=== PATIENT | female | born 1985 | race Caucasian/White ===

== ENCOUNTER 2017-08-17 10:55 | Emergency (ER) | payer OTHER ==
[~2017-08-17] VITALS: Ht 190.5 cm; Wt 80.4 kg
[2017-08-17 11:06] VITALS: TEMP 36.5; Ht 190.5 cm; Wt 80.4 kg
[2017-08-17 11:30] VITALS: O2SAT 100
--- NOTE | 2017-08-17 12:10 | EMERGENCY ROOM VISIT NOTE ---
History Report prepared by Homer: Shanelle Bui Under the Supervision of: Dr. Alan Kim M.D. First contact with patient: 11:54 Chief Complaint: SYNCOPE Stated Complaint: PASSED OUT IN KITCHEN, CHIPPED TOOTH WHEN FALLING Nursing Triage Summary: Pt c/o having a cold since earlier this week. This morning she stood up and felt a little dizzy, walked to kitchen and fell onto the floor, chipped her tooth, pt's states that she was shaking, event lasted for less than 30 seconds. Pt denies chest pain, SOB, cough, fever, chills. Pt states that she has been trying to stay well hydrated. History of Present Illness The patient is a 31 year old female who presents to the Emergency Room with complaints of a syncope episode that occurred this morning. The patient states she was sitting on the couch this morning and when she stood up and felt "fuzzy ". She notes she put her hands on the sink to steady herself. Her states that he saw her fall. The patient reports that she did not know where she was for a little while and was shaking. She notes she ate one half of a cinnamon roll this morning. She states this has never happened before. The notes that she stands up and feels dizzy frequently. The patient has had a cold for the past week. She states she has been taking Sudafed for her congestion. She notes she has not taken it for the past couple of days. She reports she took Claritin D yesterday morning. The patient notes that she started feeling better yesterday morning with her congestion. She states she takes Synthroid daily. The patient is also on control. She notes she took her last pill last night. The patient denies any chest pain or shortness of breath. She denies any chance of . Last menstrual cycle ended 1 week ago. Source of History: patient Onset: this morning Position: other (global) Quality: other (syncope) Associated Symptoms: No chest pain, No SOB Review of Systems See HPI for pertinent positives & negatives. A total of 10 systems reviewed and were otherwise negative. Past Medical & Surgical No pertinent medical or surgical history. Family History Cancer Hypertension Social History Smoking Status: Never Smoker Smokeless Tobacco Use: No Alcohol Use: occasionally Marital Status: Housing Status: lives with significant other Current/Historical Medications Scheduled Control Pills ( Control Pills), 1 TAB PO DAILY Levothyroxine Sodium (Synthroid), 200 MCG PO DAILY Allergies Coded Allergies: No Known Allergies (Unverified , 08/17/17) Physical Exam Vital Signs Date Time Temp Pulse Resp B/P (MAP) Pulse Ox O2 Delivery O2 Flow Rate FiO2 08/17/17 13:17 61 18 134/86 100 08/17/17 12:38 72 18 140/88 100 Room Air 08/17/17 11:49 75 08/17/17 11:30 66 18 133/81 100 Room Air 69 139/99 77 127/88 08/17/17 11:30 100 Room Air 08/17/17 11:06 36.5 107 18 139/94 97 Room Air Physical Exam GENERAL: Patient is a healthy-appearing well-nourished female HEAD: Normocephalic atraumatic EYES: Ocular movements intact pupils equal and react to light OROPHARYNX mucous membranes are moist no exudates present no erythema or edema present NECK: Supple no nuchal rigidity CHEST: Good equal expansion LUNGS: Clear and equal to auscultation CARDIAC: Normal S1 and S2 ABDOMEN: Soft nontender no guarding BACK: No CVA tenderness EXTREMITIES: No pain upon palpation normal muscle strength in all groups no clubbing cyanosis or edema NEURO: Patient is following commands and answering questions appropriately. Alert and oriented x3 Cranial Nerves 2-12 grossly intact Medical Decision & Procedures Laboratory Results 08/17/17 11:30 Red Blood Count 4.35, Mean Corpuscular Volume 89.9, Mean Corpuscular Hemoglobin 30.6, Mean Corpuscular Hemoglobin Concent 34.0, Mean Platelet Volume 10.8, Neutrophils (%) (Auto) 46.7, Lymphocytes (%) (Auto) 43.2, Monocytes (%) (Auto) 7.0, Eosinophils (%) (Auto) 2.7, Basophils (%) (Auto) 0.4, Neutrophils # (Auto) 2.26, Lymphocytes # (Auto) 2.09, Monocytes # (Auto) 0.34, Eosinophils # (Auto) 0.13, Basophils # (Auto) 0.02 08/17/17 11:30 Test 08/17/17 11:30 08/17/17 12:40 White Blood Count 4.84 K/uL (4.8-10.8) Red Blood Count 4.35 M/uL (4.2-5.4) Hemoglobin 13.3 g/dL (12.0-16.0) Hematocrit 39.1 % (37-47) Mean Corpuscular Volume 89.9 fL (80-100) Mean Corpuscular Hemoglobin 30.6 pg (25-34) Mean Corpuscular Hemoglobin Concent 34.0 g/dl (32-36) Platelet Count 175 K/uL (130-400) Mean Platelet Volume 10.8 fL (7.4-10.4) Neutrophils (%) (Auto) 46.7 % Lymphocytes (%) (Auto) 43.2 % Monocytes (%) (Auto) 7.0 % Eosinophils (%) (Auto) 2.7 % Basophils (%) (Auto) 0.4 % Neutrophils # (Auto) 2.26 K/uL (1.4-6.5) Lymphocytes # (Auto) 2.09 K/uL (1.2-3.4) Monocytes # (Auto) 0.34 K/uL (0.11-0.59) Eosinophils # (Auto) 0.13 K/uL (0-0.5) Basophils # (Auto) 0.02 K/uL (0-0.2) RDW Standard Deviation 43.5 fL (36.4-46.3) RDW Coefficient of Variation 13.2 % (11.5-14.5) Immature Granulocyte % (Auto) 0.0 % Immature Granulocyte # (Auto) 0.00 K/uL (0.00-0.02) Anion Gap 8.0 mmol/L (3-11) Est Creatinine Clear Calc Drug Dose 84.4 ml/min Estimated GFR () 68.4 Estimated GFR (Non- 59.0 BUN/Creatinine Ratio 12.2 (10-20) Calcium Level 8.8 mg/dl (8.5-10.1) Total Bilirubin 0.5 mg/dl (0.2-1) Direct Bilirubin 0.2 mg/dl (0-0.2) Aspartate Amino Transf (AST/SGOT) 19 U/L (15-37) Alanine Aminotransferase (ALT/SGPT) 24 U/L (12-78) Alkaline Phosphatase 42 U/L (45-117) Total Protein 7.3 gm/dl (6.4-8.2) Albumin 3.7 gm/dl (3.4-5.0) Thyroid Stimulating Hormone (TSH) 0.277 uIu/ml (0.300-4.500) Urine Color YELLOW Urine Appearance CLEAR (CLEAR) Urine pH 6.0 (4.5-7.5) Urine Specific [place] 1.012 (1.000-1.030) Urine Protein NEG (NEG) Urine Glucose (UA) NEG (NEG) Urine Ketones NEG (NEG) Urine Occult Blood NEG (NEG) Urine Nitrite NEG (NEG) Urine Bilirubin NEG (NEG) Urine Urobilinogen NEG (NEG) Urine Leukocyte Esterase NEG (NEG) Urine Test NEG (NEG) Labs reviewed by ED physician. Medications Administered Medications (Trade) Dose Ordered Sig/Tian Route Start Time Stop Time Status Last Admin Dose Admin Ibuprofen (Motrin Tab) 600 mg NOW STAT PO 08/17/17 12:54 08/17/17 12:55 DC 08/17/17 13:06 600 MG ECG Indication: syncope Rate (beats per minute): 77 Rhythm: sinus rhythm Findings: PVC (frequent), no acute ischemic change ED Course 1154: Past medical records reviewed. The patient was evaluated in room C3. A complete history and physical examination was performed. 1254: Ibuprofen 600 mg PO. 1320: Upon reexamination the patient is doing well. I discussed results and treatment plan with the patient. She verbalizes agreement and understanding. The patient is ready for discharge. Medical Decision The patient is a 31 year old female who presents to the ED with complaints of syncope . Differential diagnosis: Etiologies such as vasovagal event, infection, hypoglycemia, electrolyte abnormalities, cardiac sources, intracerebral event, toxicologic, neurologic, as well as others were entertained. This is a 31-year-old female who presents emergency department after what appears to be a vasovagal episode. The patient denies any chest pain or shortness of breath and in addition she is not tachycardic therefore my suspicion of a PE is exceedingly low. The patient finished her period earlier in the week and in addition has been having cold-like symptoms. I feel this along with fact that the patient has not eating today probably contributed to her episode of syncope. She has normal CBC normal renal profile with the exception of creatinine is slightly bumped. Due to his fluid shortage the patient was given by mouth fluids including Gatorade and water while in the emergency department. Her urine is clean and she is not . Feel based on these findings at the patient can be safely discharged home. Patient was in agreement with the treatment plan. Medication Reconcilliation Current Medication List: was personally reviewed by me Blood Pressure Screening Patient's blood pressure: Elevated blood pressure Impression Primary Impression: Vaso vagal episode Scribe Attestation The scribe's documentation has been prepared under my direction and personally reviewed by me in its entirety. I confirm that the note above accurately reflects all work, treatment, procedures, and medical decision making performed by me. Departure Information Dispostion Home / Self-Care Referrals Efraín Agarwal D.O. (PCP) Patient Instructions My [facility] Additional Instructions Increase fluids next 48 hours You have been examined and treated today on an emergency basis only. This is not a substitute for, or an effort to provide, complete comprehensive medical care. It is impossible to recognize and treat all injuries or illnesses in a single emergency department visit. It is therefore important that you follow up closely with Dr Agarwal. Call as soon as possible for an appointment. Thank you for your time and consideration. I look forward to speaking with you again soon. Please don't hesitate to call us if you have any questions.
[2017-08-17 12:18] LABS: BASO % 0.4 %; BASO ABS # 0.02 K/uL (0-0.2); COMPLETE YES; EOS % 2.7 %; HEMATOCRIT 39.1 % (37-47); LYMPH % 43.2 %; LYMPH ABS # 2.09 K/uL (1.2-3.4); MEAN CELL VOLUME 89.9 fL (80-100); MEAN CORPUSCULAR HEMOGLOBIN 30.6 pg (25-34); MEAN PLATELET VOLUME 10.8 fL (7.4-10.4); NEUT % 46.7 %; PLATELET COUNT 175 K/uL (130-400); RED BLOOD COUNT 4.35 M/uL (4.2-5.4); WHITE BLOOD COUNT 4.84 K/uL (4.8-10.8)
[2017-08-17 12:28] LABS: BUN/CREATININE RATIO 12.2 (10-20); CALCIUM 8.8 mg/dl (8.5-10.1); CREATININE 1.22 mg/dl (0.60-1.20); POTASSIUM 3.7 mmol/L (3.5-5.1)
[2017-08-17] MEDS ORDERED: BCPILLS PO (12:30)
[2017-08-17] MEDS ORDERED: LEVO200T PO (12:30)
[2017-08-17 12:39] LABS: THYROID STIMULATING HORMONE 0.277 uIu/ml (0.300-4.500)
[2017-08-17] MEDS ORDERED: IBUPROFEN 600 MG TAB PO STA (12:54)
[2017-08-17 12:58] LABS: URINE APPEARANCE CLEAR (CLEAR); URINE BILIRUBIN NEG (NEG); URINE COLOR YELLOW; URINE NITRITE NEG (NEG); URINE SPECIFIC GRAVITY 1.012 (1.000-1.030); UROBILINOGEN NEG (NEG)
[2017-08-17 13:03] LABS: MANUAL MICROSCOPIC REQUIRED? NO; REVIEW REQ? NO
[2017-08-17 13:17] VITALS: BP 134/86; PULSE 61; O2SAT 100
== END 2017-08-17 13:23 | disposition home or self-care (01) ==
LOC: C.EDB 10:57 → C.EDC 13:23
DX: R55 Syncope and collapse (principal); Z82.49 Family history of ischemic heart disease and other diseases of the circulatory system